=== PATIENT | male | born 1980 | race African-American/Black ===

== ENCOUNTER 2019-06-16 16:02 | Emergency (ER) | payer MEDICAID ==
[~2019-06-16] VITALS: Ht 177.8 cm; Wt 77.1 kg
[2019-06-16 16:10] VITALS: BP 132/73
--- NOTE | 2019-06-16 16:10 | NUR ---
ED Nurse Note: Patient ambulated in to ER from home due to Lt earache started 3 hours ago. pt used ear drop for wax remove and pain started 3 hours ago. no drainage coming out from Lt ear. Patient alert and oriented x4 and ambulatory. Skin clean and intact. Calm and cooperative. No acute distress noted at this time.
--- NOTE | 2019-06-16 16:45 | NUR ---
ED Nurse Note: ERPA assessing pt.
--- NOTE | 2019-06-16 16:52 | Emergency Room Report ---
History of Present Illness General Chief Complaint: Earache Source: Patient, Family Member Present Illness HPI 39-year-old male with no significant past medical history here complaining of pain in the left ear x1 day. Patient reports that he was cleaning his ear with hydrogen peroxide and having pain and vertigo. Patient also feels numbness in the left side of face however has full range of motion and facial nerve is intact. Denies sore throat, cough and congestion. Denies fever and chills. Denies recent swimming. Denies dizziness and headache. Denies tinnitus, hearing loss. Denies all other associated symptoms. Has not taken medication for symptom relief. Denies chest pain, shortness of breath, palpitation, and other associated symptoms. Allergies: Uncoded Allergies: LACTOSE INTOLERANT (Allergy, Unknown, 06/16/19) TREE NUTS (Allergy, Unknown, 06/16/19) Patient History Past Medical History: see triage record Past Surgical History: unable to obtain Pertinent Family History: none Immunizations: UTD Reviewed Nursing Documentation: PMH: Agreed; PSxH: Agreed Nursing Documentation-PMH Past Medical History: No History, Except For Review of Systems All Other Systems: negative except mentioned in HPI Physical Exam Vital Signs Date Time Temp Pulse Resp B/P (MAP) Pulse Ox O2 Delivery O2 Flow Rate FiO2 06/16/19 16:08 98.4 60 16 132/73 (92) 96 Room Air Sp02 EP Interpretation: reviewed, normal General Appearance: no apparent distress, alert, GCS 15, non-toxic Head: normocephalic, atraumatic Eyes: bilateral eye normal inspection, bilateral eye PERRL ENT: other - Left external ear canal erythematous and tragus tender to palpation however TM is normal Neck: full range of motion, supple, supple/symm/no masses Respiratory: chest non-tender, lungs clear, normal breath sounds, speaking full sentences Cardiovascular #1: regular rate, rhythm, no edema Gastrointestinal: normal bowel sounds, non tender, soft, non-distended, no guarding, no rebound Musculoskeletal: back normal, gait/station normal, normal range of motion, non- tender, other - No mastoid tenderness noted Neurologic: alert, oriented x3, responsive, motor strength/tone normal, sensory intact, speech normal Psychiatric: judgement/insight normal, memory normal, mood/affect normal, no suicidal/homicidal ideation Skin: no rash Lymphatic: no adenopathy Medical Decision Making PA Attestation All diagnoses and treatment plans were reviewed and discussed with my supervising physician Dr. Morgan Diagnostic Impression: Primary Impression: Benign positional vertigo Additional Impression: Otitis externa ER Course 39-year-old male with no significant past medical history here complaining of pain in the left ear x1 day. Patient reports that he was cleaning his ear with hydrogen peroxide and having pain and vertigo. Patient also feels numbness in the left side of face however has full range of motion and facial nerve is intact. Denies sore throat, cough and congestion. Denies fever and chills. Denies recent swimming. Denies dizziness and headache. Denies tinnitus, hearing loss. Denies all other associated symptoms. Has not taken medication for symptom relief. Denies chest pain, shortness of breath, palpitation, and other associated symptoms. Ddx considered but are not limited to: Otitis media versus otitis externa versus positional vertigo versus vertigo of central origin, TM perforation, Castellanos 's palsy Vital signs: are WNL, pt. is afebrile H&PE are most consistent with: Otitis externa, benign positional vertigo ORDERS: Originally I wrote for Cipro otic however upon talking to [facility] pharmacy medication was changed to Corticosporin otic as Lexapro is not covered by patient's medical insurance. Meclizine ED INTERVENTIONS: None required at this time. DISCHARGE: At this time pt. is stable for d/c to home. Will provide printed patient care instructions, and any necessary prescriptions. Care plan and follow up instructions have been discussed with the patient prior to discharge. I advised the patient to follow-up with ear nose throat doctor to refrain from driving until vertigo has resolved. Return to the emergency room with worsening symptoms. Last Vital Signs Date Time Temp Pulse Resp B/P (MAP) Pulse Ox O2 Delivery O2 Flow Rate FiO2 06/16/19 16:10 98.4 91 16 132/73 96 Room Air Disposition: HOME, SELF-CARE Condition: Stable Scripts Meclizine Hcl* (MECLIZINE*) 25 Mg Tablet 25 MG ORAL THREE TIMES A DAY, #15 TAB Prov: Megan Ornelas 06/16/19 Ciprofloxacin/Hydrocortisone (CIPRO HC OTIC SUSPENSION) 10 Ml Drops.susp 2 DROP OT BID for 7 Days, #10 ML Prov: Megan Ornelas 06/16/19 Referrals: [facility],REFERRING (PCP) Patient Instructions: Benign Positional Vertigo, Otitis Externa, [id number] Additional Instructions: Take medication as directed follow-up with ENT if worsening symptoms return to emergency room advised to use Sera maneuver at home Megan Ornelas Jun 16, 2019 16:52
[2019-06-16] MEDS ORDERED: CIPRO HC OTIC S10 M1 OT (16:53)
[2019-06-16] MEDS ORDERED: MECLIZINE HCL25 MG ORAL (16:53)
[2019-06-16 16:56] VITALS: BP 126/77
--- NOTE | 2019-06-16 16:58 | NUR ---
ER DISCHARGE NOTE: Patient is cleared to be discharged per ERPA, pt is aox4, accompanied by a significant other, on room air, with stable vital signs. pt was given dc and prescription instructions, pt was able to verbalize understanding, pt id band removed. pt is able to ambulate with steady gait. pt took all belongings.
== END 2019-06-16 17:00 | disposition home or self-care (01) ==
LOC: EMR 16:35
DX: H60.92 Unspecified otitis externa, left ear (principal); H81.10 Benign paroxysmal vertigo, unspecified ear; E73.9 Lactose intolerance, unspecified; Z91.018 Allergy to other foods
CPT/HCPCS: 99282